=== PATIENT | female | born 1995 | race Caucasian/White ===

== ENCOUNTER 2016-08-10 16:44 | Emergency (ER) | payer MEDICAID ==
[2016-08-10] MEDS ORDERED: ONDANSETRON 4 MG TAB.RAPDIS PO ONE (17:21)
[2016-08-10] MEDS ORDERED: ACETAMINOPHEN 325 MG TABLET PO ONE (17:21)
--- NOTE | 2016-08-10 17:21 | ER Document Report ---
ED Medical Screen (RME) - General Chief Complaint: Abdominal Pain Stated Complaint: VOMITING AND PAIN ON ABDOMINAL Time seen by provider: 17:19 Mode of Arrival: Ambulatory Information source: Patient Notes: 21 yo female presents to ed for left abdominal pain with nausea and vomiting since last night and head pressure for about a month TRAVEL OUTSIDE OF THE [place] IN LAST 30 DAYS: No - HPI Onset: Other - see above Onset/Duration: Intermittent Quality of pain: Achy, Pressure - head Severity: Moderate Pain Level: 3 Associated Symptoms: Abdominal pain, Headache, Nausea, Vomiting Exacerbated by: Food Relieved by: Denies Similar symptoms previously: Yes Recently seen / treated by doctor: No - Related Data Smoking: Cigarettes - 1/2 ppd Frequency of alcohol use: Occasional Drug Abuse: None Allergies/Adverse Reactions: Sulfa (Sulfonamide Antibiotics) Allergy (Severe, Verified 12/25/11 23:01) Hives Past Medical History - Immunizations Hx Diphtheria, Pertussis, Tetanus Vaccination: Yes Physical Exam - Vital signs Vitals: Temp Pulse Resp BP Pulse Ox 98.3 F 90 16 109/68 100 08/10/16 17:06 08/10/16 17:06 08/10/16 17:06 08/10/16 17:06 08/10/16 17:06 Course - Vital Signs Vital signs: Temp Pulse Resp BP Pulse Ox 98.3 F 90 16 109/68 100 08/10/16 17:06 08/10/16 17:06 08/10/16 17:06 08/10/16 17:06 08/10/16 17:06
[2016-08-10] MEDS ORDERED: ONDANSETRON ODT 4 MG TAB (6 TAB/DSPK) PO PRN (20:42)
[2016-08-10] MEDS ORDERED: CIPROFLOXACIN HCL 500 MG TABLET PO ONE (20:42)
[2016-08-10 21:24] LABS: APPEARANCE,URINE CLOUDY; BILIRUBIN,URINE NEGATIVE (NEGATIVE); GLUCOSE, URINE NEGATIVE (NEGATIVE); KETONES,URINE NEGATIVE (NEGATIVE); LEUKOCYTE ESTERASE,URINE LARGE (NEGATIVE); NITRITE,URINE NEGATIVE (NEGATIVE); PROTEIN,URINE NEGATIVE (NEGATIVE); URINE SPECIFIC GRAVITY 1.014; UROBILINOGEN,URINE NEGATIVE mg/dL (<2.0)
[2016-08-10 21:29] LABS: ALANINE AMINOTRANSFERASE 36 U/L (9-52); ALBUMIN 4.1 g/dL (3.5-5.0); ALKALINE PHOSPHATASE 49 U/L (38-126); ANION GAP 12 (5-19); ASPARTATE AMINO TRANSFERASE 19 U/L (14-36); BILIRUBIN,TOTAL 0.6 mg/dL (0.2-1.3); BLOOD UREA NITROGEN 12 mg/dL (7-20); CALCIUM 9.3 mg/dL (8.4-10.2); CARBON DIOXIDE 27 mmol/L (22-30); CHLORIDE 102 mmol/L (98-107); CREATININE RESULT 0.65 mg/dL (0.52-1.25); GLUCOSE 84 mg/dL (75-110); POTASSIUM 3.9 mmol/L (3.6-5.0); SODIUM 140.9 mmol/L (137-145); TOTAL PROTEIN 6.7 g/dL (6.3-8.2)
--- NOTE | 2016-08-10 21:41 | ER Document Report ---
ED General - General Chief Complaint: Abdominal Pain Stated Complaint: VOMITING AND PAIN ON ABDOMINAL Mode of Arrival: Ambulatory Notes: Patient is a 21-year-old female without past medical history, no prior surgical history who presents with 2 weeks of vomiting and diarrhea. Nothing improves or worsens the symptoms. Denies a history of similar symptoms in the past. No known sick contacts. She has not seen her primary care physician regarding today's concerns. She has not had a fever, melena, hematochezia, or hematemesis. Denies any fever, headache, or altered mental status. Note that she intermittently has some diffuse abdominal cramping but denies any abdominal pain at time of my assessment. The pain is described as a mild cramping pain not improved or worsened by anything. States she has been able tolerate fluids at home. TRAVEL OUTSIDE OF THE [place] IN LAST 30 DAYS: No - HPI Onset/Duration: Gradual Quality of pain: Cramping Severity: Mild Pain Level: Denies Associated symptoms: Diarrhea, Nausea, Vomiting Exacerbated by: Denies Relieved by: Denies Similar symptoms previously: No Recently seen / treated by doctor: No - Related Data Allergies/Adverse Reactions: Sulfa (Sulfonamide Antibiotics) Allergy (Severe, Verified 12/25/11 23:01) Hives Past Medical History - General Information source: Patient - Social History Smoking Status: Current Every Day Smoker Frequency of alcohol use: Occasional Drug Abuse: None Lives with: Spouse/Significant other Family History: Reviewed & Not Pertinent Patient has suicidal ideation: No Patient has homicidal ideation: No - Immunizations Hx Diphtheria, Pertussis, Tetanus Vaccination: Yes Review of Systems - Review of Systems Notes: Constitutional: Negative for fever. HENT: Negative for sore throat. Eyes: Negative for visual changes. Cardiovascular: Negative for chest pain. Respiratory: Negative for shortness of breath. Gastrointestinal: Positive for abdominal cramping, positive for vomiting and diarrhea Genitourinary: Negative for dysuria. Musculoskeletal: Negative for back pain. Skin: Negative for rash. Neurological: Negative for headaches, weakness or numbness. 10 point ROS negative except as marked above and in HPI. Physical Exam - Vital signs Vitals: Temp Pulse Resp BP Pulse Ox 98.3 F 90 16 109/68 100 08/10/16 17:06 08/10/16 17:06 08/10/16 17:06 08/10/16 17:06 08/10/16 17:06 Interpretation: Normal Notes: PHYSICAL EXAMINATION: GENERAL: Well-appearing, well-nourished and in no acute distress. HEAD: Atraumatic, normocephalic. EYES: Pupils equal round and reactive to light, extraocular movements intact, sclera anicteric, conjunctiva are normal. ENT: nares patent, oropharynx clear without exudates. Moist mucous membranes. NECK: Normal range of motion, supple without lymphadenopathy LUNGS: Breath sounds clear to auscultation bilaterally and equal. No wheezes rales or rhonchi. HEART: Regular rate and rhythm without murmurs ABDOMEN: Soft, nontender, normoactive bowel sounds. No guarding, no rebound. No masses appreciated. No flank tenderness. EXTREMITIES: Normal range of motion, no pitting or edema. No cyanosis. NEUROLOGICAL: No focal neurological deficits. Moves all extremities spontaneously and on command. PSYCH: Normal mood, normal affect. SKIN: Warm, Dry, normal turgor, no rashes or lesions noted. Course - Re-evaluation Re-evalutation: 08/11/16 02:54 Presentation of an overall well-appearing patient in no acute distress with complaints of nausea, vomiting, diarrhea. Given duration of symptoms for 2 weeks, increase concern for possible bacterial etiology of her symptoms. However,. Patient has no abdominal tenderness on exam and specifically no tenderness in the RLQ, LLQ, RUQ. Overall well hydrated on exam. Able to tolerate oral intake here in the emergency department. Low clinical suspicion for any acute life-threatening etiology based on exam and history including acute cholecystitis, SBO, appendicitis, nephrolithiasis, or pylonephritis. Although urinalysis does demonstrate white blood cell clumps, patient denies any flank pain or dysuria. Moreover the specimen is grossly contaminated with a large amount of squamous cells. CMP without evidence of acute hepatitis or significant dehydration. Patient will be started on ciprofloxacin for a urinary tract infection is identified on urinalysis as well as her ongoing vomiting and diarrhea. .At this time will discharge with return precautions and follow-up recommendations. Verbal discharge instructions given a the bedside and opportunity for questions given. Medication warnings reviewed. Patient is in agreement with this plan and has verbalized understanding of return precautions and the need for primary care follow-up in the next 24-72 hours. - Vital Signs Vital signs: Temp Pulse Resp BP Pulse Ox 98.0 F 82 16 109/61 95 08/10/16 21:50 08/10/16 21:50 08/10/16 21:50 08/10/16 21:50 08/10/16 21:50 - Laboratory Result Diagrams: 08/10/16 20:56 Laboratory results interpreted by me: 08/10/16 20:56 Ur Leukocyte Esterase LARGE H Discharge - Discharge Clinical Impression: Vomiting and diarrhea Urinary tract infection Qualifiers: Urinary tract infection type: acute cystitis Hematuria presence: without hematuria Qualified Code(s): N30.00 - Acute cystitis without hematuria Condition: Good Disposition: HOME, SELF-CARE Additional Instructions: Your symptoms are likely due to a bacterial infection and should improve with antibiotics. Your urinalysis also shows findings consistent with an infection which may also be concerning to her symptoms. You can take cikt-jyd-budsxom loperamide also known as Imodium as needed for diarrhea per box instructions. Continue to stay hydrated with plenty of solution such as Gatorade or Pedialyte. You are being prescribed Zofran to take as needed for nausea and vomiting. Take the ciprofloxacin as prescribed. Please return if you develop severe abdominal pain, pass out, become unable to tolerate any oral fluids for 12 more hours, develop a fever >100.4, or any other symptoms that are concerning to you. Prescriptions: Ciprofloxacin HCl [Cipro 500 mg Tablet] 500 mg PO BID #10 tablet Referrals: JOEL YOUNGBLOOD MD [Primary Care Provider] - Follow up tomorrow
[2016-08-10 21:54] VITALS: BP 109/61
== END 2016-08-10 21:54 | disposition home or self-care (01) ==
LOC: ER 16:44
DX: N30.00 Acute cystitis without hematuria (principal); R10.9 Unspecified abdominal pain; R19.7 Diarrhea, unspecified; R11.2 Nausea with vomiting, unspecified; F17.200 Nicotine dependence, unspecified, uncomplicated; Z88.2 Allergy status to sulfonamides
CPT/HCPCS: 99284; 36415; 87086; 83690; 81025; 80053; 81001; J3490 ×2; S0119

== ENCOUNTER 2017-12-01 20:37 | Emergency (ER) | payer MEDICAID ==
[2017-12-01 20:48] VITALS: BP 137/87
== END 2017-12-02 00:21 | disposition left against medical advice (07) ==
LOC: ER 20:37
DX: Z53.21 Procedure and treatment not carried out due to patient leaving prior to being seen by health care provider (principal)

== ENCOUNTER 2018-11-18 11:39 | Outpatient (CLI) | payer MEDICAID ==
--- NOTE | 2018-11-18 12:31 | Non Stress Test Report ---
Non Stress Test Datetime Report Generated by CPN: 11/18/2018 12:31 DEMOGRAPHIC EGA NST: 36.0 INDICATION Indication for Study: Ordered by Provider VITAL SIGNS Temperature - NST: 97.7 Pulse - NST: 96 RESP - NST: 18 NBPSYS NST: 97 NBPDIA NST: 56 MONITORING Monitor Explained: Monitor Explained; Test Explained; Patient Verbalized Understanding Time on Monitor: 11/18/2018 11:40 Time off Monitor: 11/18/2018 12:17 NST Duration: 37 NST INTERVENTIONS NST Interventions: PO Hydration; Reposition Patient; For Biophysical Profile Physician Notified NST: N UMANA, CNM REVIEWED STRIP BABY A: [id number] BABY A Movement : Present Contraction Frequency : NONE FHR Baseline : 140 Accelerations : 15X15 Decelerations : None Variability : Moderate 6-25bpm NST Review: Meets Criteria for Reactive NST NST Review and Verified By : APOLONIA Day NST Results: Reactive NST REPORT Report Trigger: Send Report
--- NOTE | 2018-11-18 14:07 | RADIOLOGY REPORT (SQ) ---
EXAM DESCRIPTION: U/S PROFILE W/O STRESS COMPLETED DATE/TIME: 11/18/2018 1:54 pm REASON FOR STUDY: IUP at 36 wks, Hx IUGR COMPARISON: None. TECHNIQUE: Limited jackson-scale realtime and static images of the fetus to measure specified parameter s. LIMITATIONS: None. FINDINGS: HEART RATE: 162 beats per minute. BONNIE: 10.2 cm BREATHING MOVEMENT: 2 points. MOVEMENT: 2 points. POSTURE AND TONE: 2 points. QUALITATIVE BONNIE: 2 points. OTHER: Cephalic presentation. IMPRESSION: BIOPHYSICAL PROFILE: 03/13. Trimester of : Third - 28 weeks to delivery COMMENT: BREATHING MOVEMENTS: 2 POINTS: PRESENT 0 POINTS: ABSENT MOTION: 2 POINTS: PRESENT 0 POINTS: ABSENT TONE: 2 POINTS: PRESENT 0 POINTS: ABSENT AMNIOTIC FLUID VOLUME: 2 POINTS: LARGEST POCKET GREATER THAN 2 CM DEPTH. 0 POINTS: NO POCKET OF 2 CM. TECHNICAL DOCUMENTATION: JOB ID: [id number] [place] [employer]- All Rights Reserved Reading location - IP/workstation name: [email or web address]
== END 2018-11-18 14:18 | disposition home or self-care (01) ==
LOC: LC 11:39
PROVIDERS: ATTEND Obstetrics & Gynecology Gynecology
PROC: 4A1HXCZ Monitoring of Products of Conception, Cardiac Rate, External Approach (ICD-10-PCS; principal; 2018-11-18)
DX: O36.5930 Maternal care for other known or suspected poor fetal growth, third trimester, not applicable or unspecified (principal); Z3A.36 36 weeks gestation of pregnancy
CPT/HCPCS: 59025; 76819

== ENCOUNTER 2018-11-25 10:19 | Outpatient (CLI) | payer MEDICAID ==
[2018-11-25 11:13] LABS: APPEARANCE,URINE CLOUDY; BILIRUBIN,URINE NEGATIVE (NEGATIVE); COLOR,URINE YELLOW; GLUCOSE, URINE NEGATIVE (NEGATIVE); KETONES,URINE NEGATIVE (NEGATIVE); LEUKOCYTE ESTERASE,URINE LARGE (NEGATIVE); NITRITE,URINE NEGATIVE (NEGATIVE); PROTEIN,URINE NEGATIVE (NEGATIVE); URINE SPECIFIC GRAVITY 1.016; UROBILINOGEN,URINE NEGATIVE mg/dL (<2.0)
--- NOTE | 2018-11-25 11:18 | Non Stress Test Report ---
Non Stress Test Datetime Report Generated by CPN: 11/25/2018 11:18 DEMOGRAPHIC EGA NST: 37.0 INDICATION Indication for Study: Ordered by Provider MONITORING Monitor Explained: Monitor Explained; Test Explained; Patient Verbalized Understanding Time on Monitor: 11/25/2018 10:39 Time off Monitor: 11/25/2018 11:16 NST Duration: 37 NST INTERVENTIONS NST Interventions: None Physician Notified NST: N Dunlap CNM BABY A: [id number] BABY A Movement : Present Contraction Frequency : None FHR Baseline : 145 Accelerations : 15X15 Decelerations : None Variability : Moderate 6-25bpm NST Review: Meets Criteria for Reactive NST NST Review and Verified By : Iggy FABIAN RN NST Results: Reactive NST REPORT Report Trigger: Send Report
[2018-11-25] MEDS ORDERED: MAG HYDROX/AL HYDROX/SIMETH SUSP 30 ML UDCUP PO ONE (11:29)
[2018-11-25] MEDS ORDERED: MAG HYDROX/AL HYDROX/SIMETH SUSP 30 ML UDCUP ONE (11:30)
[2018-11-25 11:33] LABS: URINE AMPHETAMINES SCREEN NEGATIVE; URINE BARBITURATES SCREEN NEGATIVE; URINE BENZODIAZEPINES SCREEN NEGATIVE; URINE COCAINE SCREEN NEGATIVE; URINE MARIJUANA (THC) SCREEN NEGATIVE; URINE METHADONE SCREEN NEGATIVE; URINE PHENCYCLIDINE SCREEN NEGATIVE
== END 2018-11-25 11:44 | disposition home or self-care (01) ==
LOC: LC 10:19
PROVIDERS: ATTEND Obstetrics & Gynecology
PROC: 4A1HXCZ Monitoring of Products of Conception, Cardiac Rate, External Approach (ICD-10-PCS; principal; 2018-11-25)
DX: Z36.89 Encounter for other specified antenatal screening (principal)
CPT/HCPCS: 59025; 81001; 80307; J3490

== ENCOUNTER 2018-12-09 06:24 | Inpatient (IN) | payer MEDICAID ==
[2018-12-09 07:04] LABS: ABSOLUTE LYMPHOCYTES (AUTO) 1.5 10^3/uL (0.5-4.7); ABSOLUTE MONOCYTES (AUTO) 0.5 10^3/uL (0.1-1.4); ABSOLUTE NEUT (AUTO) 4.4 10^3/uL (1.7-8.2); BASOPHILS % (AUTO) 0.5 % (0-2); EOSINOPHILS % (AUTO) 0.8 % (0-6); HEMATOCRIT 34.8 % (36.0-47.0); HEMOGLOBIN 11.6 g/dL (12.0-15.5); LYMPHOCYTES % (AUTO) 23.3 % (13-45); MEAN CORPUSCULAR HEMOGLOBIN 27.3 pg (27.0-33.4); MEAN CORPUSCULAR HGB CONC 33.3 g/dL (32.0-36.0); MEAN CORPUSCULAR VOLUME 82 fl (80-97); PLATELET COUNT 311 10^3/uL (150-450); RED BLOOD COUNT 4.25 10^6/uL (3.72-5.28); RED CELL DISTRIBUTION WIDTH 13.8 % (11.5-14.0); SEGMENTED NEUTROPHILS % (AUTO) 68.4 % (42-78); TOTAL CELLS COUNTED % (AUTO) 100 %; WHITE BLOOD COUNT 6.5 10^3/uL (4.0-10.5)
[2018-12-09] MEDS ORDERED: MISOPROSTOL 0.2 MG TABLET ONE (07:52)
[2018-12-09] MEDS ORDERED: OXYTOCIN 10 UNIT/ML VIAL ONE (07:52)
[2018-12-09] MEDS ORDERED: OXYTOCIN/NORMAL SALINE 20 UNIT/1,000 ML RTUINJ ONE (07:53)
[2018-12-09] MEDS ORDERED: LIDOCAINE 1% INJ-PF (10 MG/ML) 30 ML SDV ONE (07:53)
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
[2018-12-09] MEDS ORDERED: OXYTOCIN/NORMAL SALINE 20 UNIT/1,000 ML RTUINJ IV PRN ×2 (08:32→13:52)
[2018-12-09] MEDS ORDERED: RINGERS SOLUTION,LACTATED 1,000 ML IV PRN (13:11)
[2018-12-09] MEDS ORDERED: DIPH/PERTUSS(ACELL)/TETANUS VAC/PF 0.5 ML SYR (>=10YO) IM PRN (13:52)
[2018-12-09] MEDS ORDERED: NA PHOS,M-B/NA PHOS,DI-BA (ADULT) 133 ML ENEMA PR PRN (13:52)
[2018-12-09] MEDS ORDERED: PROMETHAZINE HCL 25 MG SUPP.RECT PR PRN (13:52)
[2018-12-09] MEDS ORDERED: ZOLPIDEM TARTRATE 5 MG TABLET PO PRN (13:52)
[2018-12-09] MEDS ORDERED: MEASLES,MUMPS&RUBELLA VACC/PF 0.5 ML VIAL SUBCUT PRN (13:52)
[2018-12-09] MEDS ORDERED: PROMETHAZINE HCL INJ 25 MG/1 ML VIAL IV PRN (13:52)
[2018-12-09] MEDS ORDERED: BENZOCAINE/MENTHOL AEROSOL SPRAY 56 ML TOP PRN (13:52)
[2018-12-09] MEDS ORDERED: GLYCERIN/WITCH HAZEL LEAF 1 EACH MED..WIPE TP PRN (13:52)
[2018-12-09] MEDS ORDERED: DIPHENHYDRAMINE HCL 25 MG CAPSULE PO PRN (13:52)
[2018-12-09] MEDS ORDERED: MAGNESIUM HYDROXIDE SUSP 30 ML UDCUP PO PRN (13:52)
[2018-12-09] MEDS ORDERED: PSEUDOEPHEDRINE HCL 30 MG TABLET PO PRN (13:52)
[2018-12-09] MEDS ORDERED: DIBUCAINE 1% OINTMENT 56 GM TP PRN (13:52)
[2018-12-09] MEDS ORDERED: PROMETHAZINE HCL 25 MG TABLET PO PRN (13:52)
[2018-12-09] MEDS ORDERED: ACETAMINOPHEN 650 MG SUPP.RECT PR PRN (13:52)
[2018-12-09] MEDS ORDERED: ACETAMINOPHEN WITH CODEINE #3 TABLET PO PRN ×2 (13:52)
[2018-12-09] MEDS ORDERED: ACETAMINOPHEN WITH CODEINE #3 TABLET ONE (14:06)
--- NOTE | 2018-12-09 15:09 | Warning Signs in Babies ---
VOD Warning Signs Datetime Report Generated by [facility]: 12/09/2018 15:09 VOD#[id number] -Warning Signs in Babies: Viewed with Parent(s)/Family (12/09/2018 15:07:Raheel Bashir RN)
[2018-12-09] MEDS: FERROUS SULFATE 325 MG TABLET PO SCH (17:23)
[2018-12-09] MEDS: IBUPROFEN 800 MG TABLET PO SCH ×2 (17:23→21:00)
[2018-12-09] MEDS: DOCUSATE SODIUM 100 MG CAPSULE PO SCH (17:23)
--- NOTE | 2018-12-09 17:25 | Delivery Summary ---
Del Sum A-C Datetime Report Generated by CPN: 12/09/2018 17:24 DELIVERY PERSONNEL DELIVERY PERSONNEL: [id number] Delivery Doctor:: Blanca Levin CNM Labor and Delivery Nurse:: Raheel Bashir RNmemorial designer Nurse:: Gretchen HIGGINBOTHAM RN Mink Rancher:: Sakina Foster RN Record Center Coordinator/AREA RELIEF PILOT: Anali Lim, BUILDING CONSTRUCTION CONTRACTOR Record Center Coordinator/AREA RELIEF PILOT: Ayaka Mccarthy CNA II Additional Personnel: : Celina Thacker, RN MATERNAL INFORMATION Delivery Anesthesia: None Medications After Delivery: Pitocin Bolus-Please Comment; Pitocin Drip 20 Units/1000ml NSS Maternal Complications: None Provider Comments: CHINMAY VIABLE FEMALE WITH SPONTANEOUS CRY. CORD DOUBLE CLAMPED AND CUT. SPONTANEOUS INTACT PLACENTA WITH 3VC. RIGHT PERIURETHRAL LACERATION, NOT REPAIRED. MOTHER AND INFANT STABLE IN L_D #5. LABOR SUMMARY EDC: 12/16/2018 00:00 No. Babies in Womb: 1 Attempted: No Labor Anesthesia: None LABOR INFORMATION Reason for Induction: Intrauterine Growth Retardation Onset of Labor: 12/09/2018 11:00 Complete Dilatation: 12/09/2018 13:26 Oxytocin: Induction Group B Beta Strep: Negative Antibiotics # of Doses: 0 Steroids Given: None Reason Steroids Not Administered: Not Applicable MEMBRANES Membranes Rupture Method: Artificial Rupture of Membranes: 12/09/2018 12:47 Length of Rupture (hr): 0.87 Amniotic Fluid Color: Clear Amniotic Fluid Amount: Moderate Amniotic Fluid Odor: Normal STAGES OF LABOR Stage 1 hr: 2 Stage 1 min: 26 Stage 2 hr: 0 Stage 2 min: 13 Stage 3 hr: 0 Stage 3 min: 4 Total Time in Labor hr: 2 Total Time in Labor min: 43 VAGINAL DELIVERY Episiotomy: None Laceration #1: Periurethral Laceration Extension #1: N/A Other Laceration: SUPERFICIAL ABRASION Laceration Repair: Not Applicable Sponge Count Correct: N/A Sharps Count Correct: N/A CSECTION DELIVERY Primary Indication: N/A Secondary Indication: N/A CSection Incidence: N/A Labor: N/A Elective: N/A BABY A INFORMATION Infant Delivery Date/Time: 12/09/2018 13:39 Method of Delivery: Vaginal Born in Route : No : N/A Forceps: N/A Vacuum Extraction: N/A Shoulder Dystocia : No PRESENTATION/POSITION BABY A Presentation: Cephalic Cephalic Presentation: Vertex Vertex Position: Right Occipital Anterior Breech Presentation: N/A PLACENTA INFORMATION BABY A Placenta Delivery Time : 12/09/2018 13:43 Placenta Method of Delivery: Spontaneous Placenta Status: Delivered SCORES BABY A Heart Rate 1 min: >100 bpm Resp Effort 1 min: Good Cry Reflex Irritability 1 min: Cough or Sneeze or Pulls Away Muscle Tone 1 min: Active Motion Color 1 min: Body Stedman, Extremities Blue Resuscitation Effort 1 min: Tactile Stimulation SCORE 1 MIN: 9 Heart Rate 5 min: >100 bpm Resp Effort 5 min: Good Cry Reflex Irritability 5 min: Cough or Sneeze or Pulls Away Muscle Tone 5 min: Active Motion Color 5 min: Body Stedman, Extremities Blue Resuscitation Effort 5 min: Tactile Stimulation SCORE 5 MIN: 9 INFANT INFORMATION BABY A Gestational Age at Delivery: 39.0 Gestational Status: Full Term- 39- 40.6 Weeks Outcome : Liveborn Infant Condition : Stable Sex: Female IDENTIFICATION BABY A Infant Verification Date/Time: 12/09/2018 14:12 ID Band Number: [id number] Mother's Name Verified: Yes RN Verifying : Magaly Bashir, RN and Marge Higginbotham, RN WEIGHT/LENGTH BABY A Birthweight (gm): 2444 Weight (lb): 5 Infant Weight (oz): 6 Infant Length (in): 18.50 Infant Length (cm): 46.99 CORD INFORMATION BABY A No. Cord Vessels: 3 Nuchal Cord : N/A Cord Blood Taken: N/A Infant Suction: None ASSESSMENT BABY A Infant Complications: Multiple Variable Decels Physical Findings at Delivery: Within Normal Limits Respirations: Appears Normal Skin to Skin: Yes Skin to Skin Time (min): 45 Care By: APOLONIA Scott/APOLONIA Hunter Transferred To: Remains with Mother BABY B INFORMATION : N/A SIGNATURES Assignment: Mahi Brooks MD Signature: with User ID: [email or web address] : with User ID: [email or web address] : I was personally available for consultation and serving as supervising physician for the MLP.
[2018-12-09] MEDS: FAMOTIDINE 20 MG TABLET PO SCH (21:12)
[2018-12-10] MEDS: IBUPROFEN 800 MG TABLET PO SCH ×3 (06:15→21:56)
[2018-12-10 07:08] LABS: ABSOLUTE EOSINOPHILS # (AUTO) 0.1 10^3/uL (0.0-0.6); ABSOLUTE LYMPHOCYTES (AUTO) 1.6 10^3/uL (0.5-4.7); ABSOLUTE MONOCYTES (AUTO) 0.5 10^3/uL (0.1-1.4); ABSOLUTE NEUT (AUTO) 6.4 10^3/uL (1.7-8.2); BASOPHILS % (AUTO) 0.3 % (0-2); EOSINOPHILS % (AUTO) 0.7 % (0-6); HEMATOCRIT 30.9 % (36.0-47.0); HEMOGLOBIN 10.6 g/dL (12.0-15.5); LYMPHOCYTES % (AUTO) 18.6 % (13-45); MEAN CORPUSCULAR HGB CONC 34.5 g/dL (32.0-36.0); MEAN CORPUSCULAR VOLUME 81 fl (80-97); MONOCYTES % (AUTO) 5.9 % (3-13); PLATELET COUNT 274 10^3/uL (150-450); RED CELL DISTRIBUTION WIDTH 13.8 % (11.5-14.0); SEGMENTED NEUTROPHILS % (AUTO) 74.5 % (42-78); TOTAL CELLS COUNTED % (AUTO) 100 %; WHITE BLOOD COUNT 8.5 10^3/uL (4.0-10.5)
[2018-12-10] MEDS: FAMOTIDINE 20 MG TABLET PO SCH ×2 (09:56→21:57)
[2018-12-10] MEDS: PRENATAL VITAMIN W DHA CAPSULE PO SCH (09:56)
[2018-12-10] MEDS: DOCUSATE SODIUM 100 MG CAPSULE PO SCH ×2 (09:56→17:29)
[2018-12-10] MEDS: FERROUS SULFATE 325 MG TABLET PO SCH ×2 (09:57→17:29)
[2018-12-10] MEDS: SENNOSIDES/DOCUSATE 8.6-50 MG 1 EACH TABLET PO SCH (09:57)
--- NOTE | 2018-12-10 10:16 | PDOC PROGRESS REPORT ---
Subjective-OB Progress Note for:: 12/10/18 - PP Day #1, doing well, no complaints, , B+, Rubella NI Physical Exam (OB) Vital Signs: Temp Pulse Resp BP Pulse Ox 98.0 F 99 18 98/55 L 97 12/10/18 08:07 12/10/18 08:07 12/10/18 08:07 12/10/18 08:07 12/10/18 08:07 Intake & Output 12/09/18 12/10/18 12/11/18 06:59 06:59 06:59 Intake Total 340 Balance 340 Weight 55 kg - General General Appearance: Appears well, Alert In distress: None - PIH/Pre-Eclampsia DTR's: 1 + Clonus: Negative Headache: Absent Epigastric Pain: No Visual Changes: No - Lochia Lochia Amount: Scant < 10 ml Lochia Color: Rubra/Red - Abdomen Description: Soft, Round Hernia Present: No Fundal Description: Firm, Midline Fundal Height: u/u - u/2 - Respiratory Respiratory Status: No respiratory distress - Abdominal Distension: No distension - Genitourinary Genitourinary Note: voiding - Extremities Upper extremity: Normal inspection Lower extremities: Normal inspection - Neurological Cognition: Normal Orientation: AAOx4 - Psychological Associated symptoms: Normal affect, Normal mood - Skin Skin Temperature: Warm Skin Moisture: Dry Objective-Diagnostic Laboratory: 12/10/18 06:29 12/10/18 06:29 WBC 8.5 RBC 3.80 Hgb 10.6 L Hct 30.9 L MCV 81 MCH 28.0 MCHC 34.5 RDW 13.8 Plt Count 274 Seg Neutrophils % 74.5 Lymphocytes % 18.6 Monocytes % 5.9 Eosinophils % 0.7 Basophils % 0.3 Absolute Neutrophils 6.4 Absolute Lymphocytes 1.6 Absolute Monocytes 0.5 Absolute Eosinophils 0.1 Absolute Basophils 0.0 Assessment and Plan(PN) - Assessment and Plan (1) (normal spontaneous vaginal delivery) Is this a current diagnosis for this admission?: Yes (2) Intrauterine growth restriction affecting care of mother, antepartum Qualifiers: Fetus number: single or unspecified fetus Qualified Code(s): O36.5990 - M aternal care for other known or suspected poor growth, unspecified trimester, not applicable or unspecified Is this a current diagnosis for this admission?: Yes (3) Rubella non-immune status, antepartum Is this a current diagnosis for this admission?: Yes - Time Spent with Patient Time with patient: Less than 15 minutes Medications reviewed and adjusted accordingly: Yes - Disposition Anticipated Discharge: Home Within: within 24 hours
[2018-12-11] MEDS: IBUPROFEN 800 MG TABLET PO SCH ×2 (06:24→14:07)
[2018-12-11 10:57] VITALS: BP 104/63
[2018-12-11] MEDS: SENNOSIDES/DOCUSATE 8.6-50 MG 1 EACH TABLET PO SCH (11:05)
[2018-12-11] MEDS: DOCUSATE SODIUM 100 MG CAPSULE PO SCH ×2 (11:05→18:27)
[2018-12-11] MEDS: PRENATAL VITAMIN W DHA CAPSULE PO SCH (11:05)
[2018-12-11] MEDS: FAMOTIDINE 20 MG TABLET PO SCH (11:05)
[2018-12-11] MEDS: FERROUS SULFATE 325 MG TABLET PO SCH ×2 (11:05→18:27)
--- NOTE | 2018-12-11 12:00 | PDOC DISCHARGE SUMMARY ---
Final Diagnosis Discharge Date: 12/11/18 - Final Diagnosis (1) Acute blood loss anemia Is this a current diagnosis for this admission?: Yes (2) Intrauterine growth restriction affecting care of mother, antepartum Is this a current diagnosis for this admission?: Yes (3) (normal spontaneous vaginal delivery) Is this a current diagnosis for this admission?: Yes (4) Periurethral abrasion, delivered, current hospitalization Is this a current diagnosis for this admission?: Yes (5) Rubella non-immune status, antepartum Is this a current diagnosis for this admission?: Yes Discharge Data - Discharge Medication Prescriptions: Ibuprofen [Motrin 800 mg Tablet] 800 mg PO Q8HP PRN #30 tablet PRN Reason: Docusate Sodium [Colace 100 mg Capsule] 100 mg PO BID #60 capsule Ferrous Sulfate [Feosol 325 mg Tablet] 325 mg PO BID #60 tablet Home Medications: Pedi Multivit No.25/Folic Acid [Flintstones Multivit Chew Tab] 2 tab PO DAILY 11/18/18 Docusate Sodium [Colace 100 mg Capsule] 100 mg PO BID #60 capsule 12/11/18 Ferrous Sulfate [Feosol 325 mg Tablet] 325 mg PO BID #60 tablet 12/11/18 Ibuprofen [Motrin 800 mg Tablet] 800 mg PO Q8HP PRN #30 tablet 12/11/18 Reason(s) for Admission: Induction of Labor Procedures: NST, Ultrasound Intrapartum Procedure(s): Spontaneous Vaginal Delivery Complication(s): Laceration-Periurethral - abrasion not repaired - Diagnosis Test Laboratory: Temp Pulse Resp BP Pulse Ox 97.9 F 72 17 104/63 100 12/11/18 10:57 12/11/18 10:57 12/11/18 10:57 12/11/18 10:57 12/11/18 10:57 12/09/18 12/10/18 06:53 06:29 RBC 4.25 3.80 Hgb 11.6 L 10.6 L Hct 34.8 L 30.9 L - Discharge information/Instructions Discharge Activity: Activity As Tolerated, Balance Activity w/Rest, No Lifting Over 10 Pounds, Pelvic Rest, No tub bath, Walk Frequently Discharge Diet: As Tolerated, Regular Disposition: HOME, SELF-CARE Follow up with: [facility] in: 5, Weeks
== END 2018-12-11 18:50 | disposition home or self-care (01) | DRG 807 ==
LOC: LR 06:24 → 2S 16:35
PROVIDERS: ADMIT Student in an Organized Health Care Education/Training Program; ATTEND Student in an Organized Health Care Education/Training Program
PROC: 10E0XZZ Delivery of Products of Conception, External Approach (ICD-10-PCS; principal; 2018-12-09)
PROC: 3E0234Z Introduction of Serum, Toxoid and Vaccine into Muscle, Percutaneous Approach (ICD-10-PCS; 2018-12-11)
DX: O36.5930 Maternal care for other known or suspected poor fetal growth, third trimester, not applicable or unspecified (principal); Z37.0 Single live birth; O99.334 Smoking (tobacco) complicating childbirth; O76 Abnormality in fetal heart rate and rhythm complicating labor and delivery; F17.210 Nicotine dependence, cigarettes, uncomplicated; O71.82 Other specified trauma to perineum and vulva; Z3A.39 39 weeks gestation of pregnancy; Z88.2 Allergy status to sulfonamides; O99.02 Anemia complicating childbirth; D64.9 Anemia, unspecified; Z23 Encounter for immunization
CPT/HCPCS: 36415; 85025; 86592; 86850; 86900; 86901; 88307; 90707; 90715; J2590; J3490